=== PATIENT | male | born 1975 | race Two or more races ===

== ENCOUNTER 2019-12-31 07:21 | Emergency (ER) | payer BC ==
[~2019-12-31] VITALS: Ht 188 cm; Wt 146.0 kg
[2019-12-31] MEDS ORDERED: IBUPROFEN 600MG TABLET PO ONE (08:00)
[2019-12-31] MEDS ORDERED: BACITRACIN ZINC OINT UDPKT TOP ONE (08:00)
[2019-12-31] MEDS ORDERED: TETANUS, DIPHTHERIA, PERTUSSIS VAC/PF 0.5ML (>7YR OLD) IM ONE (08:00)
[2019-12-31 08:28] VITALS: BP 131/93
== END 2019-12-31 08:30 | disposition home or self-care (01) ==
LOC: ER 07:21
DX: S80.212A Abrasion, left knee, initial encounter (principal); V49.88XA Car occupant (driver) (passenger) injured in other specified transport accidents, initial encounter; Y93.89 Activity, other specified; Y92.89 Other specified places as the place of occurrence of the external cause; Y99.8 Other external cause status
CPT/HCPCS: 90471; 90715; 99283